=== PATIENT | female | born 2000 | race Caucasian/White ===

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

== ENCOUNTER 2019-11-15 18:10 | Emergency (ER) | payer BC ==
[2019-11-15] MEDS ORDERED: SODIUM CHLORIDE 1,000 ML IV STA (18:22)
--- NOTE | 2019-11-15 18:22 | PDOC ---
Rapid Medical Evaluation Time Seen by Provider: 11/15/19 18:20 Medical Evaluation: Allergies Allergy/AdvReac Type Severity Reaction Status Date / Time shellfish derived Allergy Severe Swelling Verified 08/08/18 19:40 11/15/19 18:20 CC: intermittent diffuse abdominal pain x1 month PE: Abs SNTND. Orders: labs, urine Patient will proceed to ER for further evaluation. 11/15/19 18:22 Discharge Disposition - Diagnosis Abdominal pain - Referrals - Patient Instructions - Post Discharge Activity
[2019-11-15 18:29] VITALS: BP 143/92; PULSE 65; TEMP 98.5; BMI 33.7
[2019-11-15 19:08] LABS: BASO % 0.7 % (0-2.0); EOS % 0.9 % (0-4.5); HEMATOCRIT 41.5 % (32.4-45.2); LYMPH % 24.3 % (8-40); MCH 30.8 pg (25.7-33.7); MCHC 33.7 g/dl (32.0-36.0); MEAN CELL VOLUME 91.2 fl (80-96); MEAN PLT VOLUME 8.5 fl (7.5-11.1); MONO % 8.1 % (3.8-10.2); PLATELET COUNT 307 K/MM3 (134-434); RBC 4.55 M/mm3 (3.60-5.2); RDW 12.8 % (11.6-15.6); WHITE BLOOD COUNT 9.6 K/mm3 (4.0-10.0)
[2019-11-15 19:18] LABS: EPI CELLS 3.3 /HPF (0-5/HPF); HYALINE CASTS 2 /lpf (0-8); URINE APPEARANCE CLOUDY; URINE BACTERIA 202.4 /hpf (NEGATIVE); URINE BILIRUBIN NEGATIVE (NEGATIVE); URINE COLOR YELLOW; URINE GLUCOSE (UA) NEGATIVE (NEGATIVE); URINE KETONE NEGATIVE (NEGATIVE); URINE LEUK ESTERASE 1+ (NEGATIVE); URINE NITRITE NEGATIVE (NEGATIVE); URINE PROTEIN NEGATIVE (NEGATIVE); URINE RBC 3 /hpf (0-4); URINE WBC 15 /hpf (0-5)
[2019-11-15 19:34] LABS: ALBUMIN 4.3 g/dl (3.4-5.0); BILIRUBIN,TOTAL 0.5 mg/dL (0.2-1); BLOOD UREA NITROGEN 11.7 mg/dL (7-18); CALCIUM 9.4 mg/dL (8.5-10.1); CREATININE 0.8 mg/dL (0.55-1.3); POTASSIUM 3.6 mmol/L (3.5-5.1); TOT PROT 7.7 g/dl (6.4-8.2)
--- NOTE | 2019-11-15 20:51 | PDOC ---
*Physical Exam - Vital Signs Last Vital Signs Temp Pulse Resp BP Pulse Ox 98.5 F 65 18 143/92 100 11/15/19 18:27 11/15/19 18:27 11/15/19 18:27 11/15/19 18:27 11/15/19 18:27 ED Treatment Course - LABORATORY CBC & Chemistry Diagram: 11/15/19 18:36 11/15/19 18:36 - ADDITIONAL ORDERS Additional order review: Laboratory Results 11/15/19 11/15/19 11/15/19 18:36 18:36 18:36 Sodium 139 Potassium 3.6 Chloride 106 Carbon Dioxide 27 Anion Gap 7 L BUN 11.7 Creatinine 0.8 Est GFR (CKD-EPI)AfAm 123.01 Est GFR (CKD-EPI)NonAf 106.13 Random Glucose 96 Calcium 9.4 Total Bilirubin 0.5 AST 16 ALT 27 Alkaline Phosphatase 101 Total Protein 7.7 Albumin 4.3 Lipase 112 Urine Color Yellow Urine Appearance Cloudy Urine pH 7.0 Ur Specific [place] 1.020 Urine Protein Negative Urine Glucose (UA) Negative Urine Ketones Negative Urine Blood Negative Urine Nitrite Negative Urine Bilirubin Negative Urine Urobilinogen 1.0 Ur Leukocyte Esterase 1+ H Urine WBC (Auto) 15 Urine RBC (Auto) 3 Urine Casts (Auto) 2 U Epithel Cells (Auto) 3.3 Urine Bacteria (Auto) 202.4 Urine HCG, Qual Negative 11/15/19 18:36 RBC 4.55 MCV 91.2 MCHC 33.7 RDW 12.8 MPV 8.5 Neutrophils % 66.0 Lymphocytes % 24.3 D Monocytes % 8.1 Eosinophils % 0.9 Basophils % 0.7 - Medications Given in the ED: ED Medications Discontinued Medications Generic Name Dose Route Start Last Admin Trade Name Freq PRN Reason Stop Dose Admin Sodium Chloride 1,000 mls @ 1,000 mls/hr 11/15/19 18:22 11/15/19 20:26 Normal Saline - IV 11/15/19 19:21 Not Given ASDIR STA Medical Decision Making - Medical Decision Making 11/15/19 20:51 Patient seen by the advanced practice provider under my direct supervision. Ancillary testing reviewed as necessary. I agree with plan as outlined by the advanced practice provider. Discharge - Discharge Information Problems reviewed: Yes Clinical Impression/Diagnosis: Abdominal pain Qualifiers: Abdominal location: epigastric Qualified Code(s): R10.13 - Epigastric pain UTI (urinary tract infection) Qualifiers: Urinary tract infection type: site unspecified Hematuria presence: without hematuria Qualified Code(s): N39.0 - Urinary tract infection, site not specified Condition: Stable Disposition: HOME - Additional Discharge Information Prescriptions: Cephalexin Monohydrate [Keflex -] 500 mg PO BID #10 capsule - Follow up/Referral Referrals: Elnaa Saha MD [Staff Physician] - - Patient Discharge Instructions Patient Printed Discharge Instructions: DI for Epigastric Pain Additional Instructions: Your Discharge Instructions: You must call primary care physician within 24 hours to arrange follow-up. Return to the Emergency Department with any new, persistent or worsening symptoms, for fever, chills, SOB, dizziness or any other concerning changes that may occur. Continue Pepcid 20 mg p.o. for your pain. - Post Discharge Activity Work/Back to School Note: Parent(s) Back to Work Note
[2019-11-15] MEDS ORDERED: FAMOTIDINE 20 MG TABLET PO ONE (21:04)
[2019-11-15] MEDS ORDERED: MAG HYDROX/AL HYDROX/SIMETH 30 ML UNIT-DOSE CUP PO ONE (21:04)
--- NOTE | 2019-11-15 21:22 | PDOC ---
History of Present Illness - General Chief Complaint: Pain Stated Complaint: ABD/PAIN/NAUSEA Time Seen by Provider: 11/15/19 18:20 History Source: Patient Exam Limitations: No Limitations - History of Present Illness Initial Comments: 11/15/19 21:22 Patient is a 19-year-old female with no past medical history here with complaints of epigastric pain x months. Patient states that the pain is sharp 8 /10 not worse with eating, intermittent, states since last night the pain had worsened and associated with nausea, and bloating, no vomiting. She has never been evaluated for this pain before. Denies any fever, chills, dysuria. PMD: [facility]/Dr. Rogers PMHX: As above PSOCHX: Neg etoh, drug, cig ALL: NKDA GENERAL/CONSTITUTIONAL: [No fever or chills. No weakness. No weight change.] HEAD, EYES, EARS, NOSE AND THROAT: [No change in vision. No ear pain or discharge. No sore throat.] CARDIOVASCULAR: [No chest pain or shortness of breath.] RESPIRATORY: [No cough, wheezing, or hemoptysis.] GASTROINTESTINAL: [No nausea, vomiting, diarrhea or constipation. No rectal bleeding.] GENITOURINARY: [No dysuria, frequency, or change in urination.] MUSCULOSKELETAL: [No joint or muscle swelling or pain. No neck or back pain.] SKIN AND BREASTS: [No rash or easy bruising.] NEUROLOGIC: [No headache, vertigo, loss of consciousness, or loss of sensation.] PSYCHIATRIC: [No depression or anxiety.] ENDOCRINE: [No increased thirst. No abnormal weight change.] HEMATOLOGIC/LYMPHATIC: [No anemia, easy bleeding, or history of blood clots.] ALLERGIC/IMMUNOLOGIC: [No hives or skin allergy. No latex allergy.] GENERAL: [The patient is awake, alert, and fully oriented, in no acute distress. ] HEAD: [Normal with no signs of trauma.] EYES: [Pupils equal, round and reactive to light, extraocular movements intact, sclera anicteric, conjunctiva clear.] ENT: [Ears normal, nares patent, oropharynx clear without exudates. Moist mucous membranes.] NECK: [Normal range of motion, supple without lymphadenopathy, JVD, or masses.] LUNGS: [Breath sounds equal, clear to auscultation bilaterally. No wheezes, and no crackles.] HEART: [Regular rate and rhythm, normal S1 and S2 without murmur, rub.] ABDOMEN: [Soft, (+) epigastric tenderness, normoactive bowel sounds. No guarding, no rebound. No masses.] EXTREMITIES: [Normal range of motion, no edema. No clubbing or cyanosis. No cords, erythema, or tenderness.] NEUROLOGICAL: [Cranial nerves II through XII grossly intact. Normal speech, normal gait.] PSYCH: [Normal mood, normal affect.] SKIN: [Warm, Dry, normal turgor, no rashes or lesions noted.] Past History - Past Medical History Allergies/Adverse Reactions: Allergies Allergy/AdvReac Type Severity Reaction Status Date / Time shellfish derived Allergy Severe Swelling Verified 11/15/19 18:26 Home Medications: Ambulatory Orders Nitrofurantoin Monohyd/M-Cryst [Macrobid -] 100 mg PO BID #14 capsule 08/09/18 Cephalexin Monohydrate [Keflex -] 500 mg PO BID #10 capsule 11/15/19 COPD: No - Immunization History Immunization Up to Date: Yes - Psycho Social/Smoking Cessation Hx Smoking Status: No Smoking History: Never smoked Have you smoked in the past 12 months: No Number of Cigarettes Smoked Daily: 0 Hx Alcohol Use: No Drug/Substance Use Hx: No Substance Use Type: None *Physical Exam - Vital Signs Last Vital Signs Temp Pulse Resp BP Pulse Ox 98.5 F 65 18 143/92 100 11/15/19 18:27 11/15/19 18:27 11/15/19 18:27 11/15/19 18:27 11/15/19 18:27 ED Treatment Course - LABORATORY CBC & Chemistry Diagram: 11/15/19 18:36 11/15/19 18:36 - ADDITIONAL ORDERS Additional order review: Laboratory Results 11/15/19 11/15/19 11/15/19 18:36 18:36 18:36 Sodium 139 Potassium 3.6 Chloride 106 Carbon Dioxide 27 Anion Gap 7 L BUN 11.7 Creatinine 0.8 Est GFR (CKD-EPI)AfAm 123.01 Est GFR (CKD-EPI)NonAf 106.13 Random Glucose 96 Calcium 9.4 Total Bilirubin 0.5 AST 16 ALT 27 Alkaline Phosphatase 101 Total Protein 7.7 Albumin 4.3 Lipase 112 Urine Color Yellow Urine Appearance Cloudy Urine pH 7.0 Ur Specific [place] 1.020 Urine Protein Negative Urine Glucose (UA) Negative Urine Ketones Negative Urine Blood Negative Urine Nitrite Negative Urine Bilirubin Negative Urine Urobilinogen 1.0 Ur Leukocyte Esterase 1+ H Urine WBC (Auto) 15 Urine RBC (Auto) 3 Urine Casts (Auto) 2 U Epithel Cells (Auto) 3.3 Urine Bacteria (Auto) 202.4 Urine HCG, Qual Negative 11/15/19 18:36 RBC 4.55 MCV 91.2 MCHC 33.7 RDW 12.8 MPV 8.5 Neutrophils % 66.0 Lymphocytes % 24.3 D Monocytes % 8.1 Eosinophils % 0.9 Basophils % 0.7 - RADIOLOGY Radiology Studies Ordered: Category Date Time Status ABDOMEN US -LIMITED [US] Stat Ultrasound 11/15/19 21:03 Ordered - Medications Given in the ED: ED Medications Discontinued Medications Generic Name Dose Route Start Last Admin Trade Name Freq PRN Reason Stop Dose Admin Sodium Chloride 1,000 mls @ 1,000 mls/hr 11/15/19 18:22 11/15/19 20:26 Normal Saline - IV 11/15/19 19:21 Not Given ASDIR STA Medical Decision Making - Medical Decision Making 11/15/19 21:22 Patient is a 19-year-old female with no past medical history here with complaints of epigastric pain x months. Patient states that the pain is sharp 8 /10 not worse with eating, intermittent, states since last night the pain had worsened and associated with nausea, and bloating, no vomiting. She has never been evaluated for this pain before. Denies any fever, chills, dysuria. Symptoms consistent with gastritis Will send labs Treat with Pepcid, IV fluids, pain meds Reassess Labs reviewed noted to have a UTI will give Macrobid Continued on IV fluids. Patient feels improved and is wanting to go home. I discussed the physical exam findings, ancillary test results and final diagnoses with the patient. I answered all of the patient's questions. The patient was satisfied with the care received and felt comfortable with the discharge plan and treatment plan. The Patient agrees to follow up with the primary care physician within 24-72 hours. Discharge - Discharge Information Problems reviewed: Yes Clinical Impression/Diagnosis: Abdominal pain Qualifiers: Abdominal location: epigastric Qualified Code(s): R10.13 - Epigastric pain UTI (urinary tract infection) Qualifiers: Urinary tract infection type: site unspecified Hematuria presence: without hematuria Qualified Code(s): N39.0 - Urinary tract infection, site not specified Condition: Stable Disposition: HOME - Additional Discharge Information Prescriptions: Cephalexin Monohydrate [Keflex -] 500 mg PO BID #10 capsule - Follow up/Referral Referrals: Elana Saha MD [Staff Physician] - - Patient Discharge Instructions Patient Printed Discharge Instructions: DI for Epigastric Pain Additional Instructions: Your Discharge Instructions: You must call primary care physician within 24 hours to arrange follow-up. Return to the Emergency Department with any new, persistent or worsening symptoms, for fever, chills, SOB, dizziness or any other concerning changes that may occur. Continue Pepcid 20 mg p.o. for your pain. - Post Discharge Activity Work/Back to School Note: Parent(s) Back to Work Note
[2019-11-15] MEDS ORDERED: MAG HYDROX/AL HYDROX/SIMETH 30 ML UNIT-DOSE CUP ONE (21:24)
[2019-11-15] MEDS ORDERED: FAMOTIDINE 20 MG TABLET ONE (21:24)
[2019-11-15] MEDS ORDERED: CEPHALEXIN MONOHYDRATE 500 MG CAPSULE (UD) PO ONE (22:15)
[2019-11-15] MEDS ORDERED: CEPHALEXIN MONOHYDRATE 500 MG CAPSULE (UD) ONE (23:23)
== END 2019-11-15 23:33 | disposition home or self-care (01) ==
LOC: JER 18:10
DX: N39.0 Urinary tract infection, site not specified (principal); Z91.013 Allergy to seafood
CPT/HCPCS: 36415; 76705-TC; 80053; 81003; 83690; 84703; 85025; 87086; 99282-25